=== PATIENT | female | born 1945 | race Two or more races ===

== ENCOUNTER → 2018-04-20 | Outpatient (CLI) | payer OTHER ==
[~2018-04-20] VITALS: Ht 147.3 cm; Wt 53.5 kg
[~2018-04-20] MED LIST: ALEN70TA10 PO; CARB200T6 PO; CETI-170 PO; GABA-531 PO; LEVE500T53 PO; SIMV-259 PO; [UNRECOGNIZED DRUG - CODE] PO
[2018-04-20 08:14] VITALS: BP 140/69
== END | disposition home or self-care (01) ==
LOC: HBOWC 07:33
PROVIDERS: ATTEND Surgery Plastic and Reconstructive Surgery
DX: S21.201D Unspecified open wound of right back wall of thorax without penetration into thoracic cavity, subsequent encounter (principal); I10 Essential (primary) hypertension; G40.909 Epilepsy, unspecified, not intractable, without status epilepticus; X58.XXXD Exposure to other specified factors, subsequent encounter